=== PATIENT | female | born 1970 | race American Indian/Alaskan Native ===

== ENCOUNTER 2019-08-25 05:53 | Emergency (ER) | payer OTHER ==
[2019-08-25] MEDS ORDERED: PANTOPRAZOLE 40 MG INJ IV ONE (07:24)
[2019-08-25] MEDS ORDERED: ONDANSETRON 4 MG/2 ML INJ IV ONE (07:24)
[2019-08-25] MEDS ORDERED: SODIUM CHLORIDE 0.9% 1000 ML 1,000 ML IV ONE ×2 (07:24→09:52)
--- NOTE | 2019-08-25 08:06 | Emergency Department Report ---
ED General Adult HPI - General Chief complaint: Nausea/Vomiting/Diarrhea Stated complaint: VOMITING,BACK PAIN Time Seen by Provider: 08/25/19 07:15 Source: patient Mode of arrival: Ambulatory Limitations: No Limitations - History of Present Illness Initial comments: Patient is a 49-year-old female presents emergency room with complaints of nausea and vomiting that began 2 days ago. She states that she also has left lower back pain. She states that she feels a burning sensation after vomiting. She denies any diarrhea, urinary symptoms, abdominal pain, fever, chest pain. She states that she had a normal bowel movement this morning. She denies any new foods or spoiled foods, recent antibiotics, camping, water from a different source, recent travel. She denies any past medical history or allergies to medications. - Related Data Previous Rx's Medication Instructions Recorded Last Taken Type Ondansetron [Zofran Odt] 4 mg PO Q8HR PRN #14 tab.rapdis 08/25/19 Unknown Rx metFORMIN [Glucophage] 500 mg PO BID #60 tablet 08/25/19 Unknown Rx Allergies Allergy/AdvReac Type Severity Reaction Status Date / Time No Known Allergies Allergy Unverified 08/25/19 05:57 ED Review of Systems ROS: Stated complaint: VOMITING,BACK PAIN Other details as noted in HPI Comment: All other systems reviewed and negative ED Past Medical Hx - Surgical History Past Surgical History?: Yes Additional Surgical History: c -section - Social History Smoking Status: Never Smoker Substance Use Type: None - Medications Home Medications: Home Medications Medication Instructions Recorded Confirmed Last Taken Type Ondansetron [Zofran Odt] 4 mg PO Q8HR PRN #14 tab.rapdis 08/25/19 Unknown Rx metFORMIN [Glucophage] 500 mg PO BID #60 tablet 08/25/19 Unknown Rx ED Physical Exam - General Limitations: No Limitations General appearance: alert, in no apparent distress - Head Head exam: Present: atraumatic, normocephalic - Eye Eye exam: Present: normal appearance - ENT ENT exam: Present: mucous membranes moist - Respiratory Respiratory exam: Present: normal lung sounds bilaterally. Absent: respiratory distress, wheezes, rales, rhonchi, stridor, chest wall tenderness, accessory muscle use, decreased breath sounds, prolonged expiratory - Cardiovascular Cardiovascular Exam: Present: regular rate, normal rhythm, normal heart sounds. Absent: systolic murmur, diastolic murmur, rubs, gallop - GI/Abdominal GI/Abdominal exam: Present: soft, normal bowel sounds. Absent: distended, tenderness, guarding, rebound, rigid - Back Exam Back exam: Absent: CVA tenderness (R), CVA tenderness (L) - Neurological Exam Neurological exam: Present: alert, oriented X3 - Psychiatric Psychiatric exam: Present: normal affect, normal mood - Skin Skin exam: Present: warm, dry, intact ED Course Vital Signs 08/25/19 08/25/19 05:57 10:37 Temperature 98.3 F Pulse Rate 90 83 Respiratory 18 19 Rate Blood Pressure 164/78 Blood Pressure 135/55 [Right] O2 Sat by Pulse 98 97 Oximetry ED Medical Decision Making - Lab Data Result diagrams: 08/25/19 Unknown 08/25/19 Unknown Lab Results 08/25/19 08/25/19 08/25/19 Range/Units 08:14 08:33 09:15 WBC (4.5-11.0) K/mm3 RBC (3.65-5.03) M/mm3 Hgb (10.1-14.3) gm/dl Hct (30.3-42.9) % MCV (79-97) fl MCH (28-32) pg MCHC (30-34) % RDW (13.2-15.2) % Plt Count (140-440) K/mm3 Lymph % (Auto) (13.4-35.0) % Thomas % (Auto) (0.0-7.3) % Eos % (Auto) (0.0-4.3) % Baso % (Auto) (0.0-1.8) % Lymph # (1.2-5.4) K/mm3 Thomas # (0.0-0.8) K/mm3 Eos # (0.0-0.4) K/mm3 Baso # (0.0-0.1) K/mm3 Seg Neutrophils % (40.0-70.0) % Seg Neutrophils # (1.8-7.7) K/mm3 VBG pH 7.374 (7.320-7.420) Sodium (137-145) mmol/L Potassium (3.6-5.0) mmol/L Chloride (98-107) mmol/L Carbon Dioxide (22-30) mmol/L Anion Gap mmol/L BUN (7-17) mg/dL Creatinine (0.7-1.2) mg/dL Estimated GFR ml/min BUN/Creatinine Ratio % Glucose (65-100) mg/dL Calcium (8.4-10.2) mg/dL Total Bilirubin (0.1-1.2) mg/dL AST (5-40) units/L ALT (7-56) units/L Alkaline Phosphatase (35-129) units/L Total Protein (6.3-8.2) g/dL Albumin (3.9-5) g/dL Albumin/Globulin Ratio % Lipase 28 (13-60) units/L HCG, Qual (Negative) Urine Color Yellow (Yellow) Urine Turbidity Clear (Clear) Urine pH 6.0 (5.0-7.0) Ur Specific [place] 1.037 H (1.003-1.030) Urine Protein 100 mg/dl (Negative) mg/dL Urine Glucose (UA) >=500 (Negative) mg/dL Urine Ketones 80 (Negative) mg/dL Urine Blood Neg (Negative) Urine Nitrite Neg (Negative) Urine Bilirubin Neg (Negative) Urine Urobilinogen < 2.0 (<2.0) mg/dL Ur Leukocyte Esterase Neg (Negative) Urine WBC (Auto) 1.0 (0.0-6.0) /HPF Urine RBC (Auto) 4.0 (0.0-6.0) /HPF U Epithel Cells (Auto) 6.0 (0-13.0) /HPF Urine Mucus Few /HPF 08/25/19 08/25/19 08/25/19 Range/Units 09:15 Unknown Unknown WBC 11.4 H (4.5-11.0) K/mm3 RBC 5.70 H (3.65-5.03) M/mm3 Hgb 14.4 H (10.1-14.3) gm/dl Hct 44.4 H (30.3-42.9) % MCV 78 L (79-97) fl MCH 25 L (28-32) pg MCHC 32 (30-34) % RDW 15.2 (13.2-15.2) % Plt Count 293 (140-440) K/mm3 Lymph % (Auto) 9.5 L (13.4-35.0) % Thomas % (Auto) 5.0 (0.0-7.3) % Eos % (Auto) 0.0 (0.0-4.3) % Baso % (Auto) 1.1 (0.0-1.8) % Lymph # 1.1 L (1.2-5.4) K/mm3 Thomas # 0.6 (0.0-0.8) K/mm3 Eos # 0.0 (0.0-0.4) K/mm3 Baso # 0.1 (0.0-0.1) K/mm3 Seg Neutrophils % 84.4 H (40.0-70.0) % Seg Neutrophils # 9.7 H (1.8-7.7) K/mm3 VBG pH (7.320-7.420) Sodium 133 L TNR (137-145) mmol/L Potassium 4.7 TNR (3.6-5.0) mmol/L Chloride 95.1 L TNR (98-107) mmol/L Carbon Dioxide 24 TNR (22-30) mmol/L Anion Gap 19 TNR mmol/L BUN 16 TNR (7-17) mg/dL Creatinine 0.6 L TNR (0.7-1.2) mg/dL Estimated GFR > 60 TNR ml/min BUN/Creatinine Ratio 27 TNR % Glucose 312 H TNR (65-100) mg/dL Calcium 9.3 TNR (8.4-10.2) mg/dL Total Bilirubin 0.50 TNR (0.1-1.2) mg/dL AST 9 TNR (5-40) units/L ALT 21 TNR (7-56) units/L Alkaline Phosphatase 60 TNR (35-129) units/L Total Protein 8.0 TNR (6.3-8.2) g/dL Albumin 3.9 TNR (3.9-5) g/dL Albumin/Globulin Ratio 1.0 TNR % Lipase TNR (13-60) units/L HCG, Qual (Negative) Urine Color (Yellow) Urine Turbidity (Clear) Urine pH (5.0-7.0) Ur Specific [place] (1.003-1.030) Urine Protein (Negative) mg/dL Urine Glucose (UA) (Negative) mg/dL Urine Ketones (Negative) mg/dL Urine Blood (Negative) Urine Nitrite (Negative) Urine Bilirubin (Negative) Urine Urobilinogen (<2.0) mg/dL Ur Leukocyte Esterase (Negative) Urine WBC (Auto) (0.0-6.0) /HPF Urine RBC (Auto) (0.0-6.0) /HPF U Epithel Cells (Auto) (0-13.0) /HPF Urine Mucus /HPF 08/25/19 Range/Units Unknown WBC (4.5-11.0) K/mm3 RBC (3.65-5.03) M/mm3 Hgb (10.1-14.3) gm/dl Hct (30.3-42.9) % MCV (79-97) fl MCH (28-32) pg MCHC (30-34) % RDW (13.2-15.2) % Plt Count (140-440) K/mm3 Lymph % (Auto) (13.4-35.0) % Thomas % (Auto) (0.0-7.3) % Eos % (Auto) (0.0-4.3) % Baso % (Auto) (0.0-1.8) % Lymph # (1.2-5.4) K/mm3 Thomas # (0.0-0.8) K/mm3 Eos # (0.0-0.4) K/mm3 Baso # (0.0-0.1) K/mm3 Seg Neutrophils % (40.0-70.0) % Seg Neutrophils # (1.8-7.7) K/mm3 VBG pH (7.320-7.420) Sodium (137-145) mmol/L Potassium (3.6-5.0) mmol/L Chloride (98-107) mmol/L Carbon Dioxide (22-30) mmol/L Anion Gap mmol/L BUN (7-17) mg/dL Creatinine (0.7-1.2) mg/dL Estimated GFR ml/min BUN/Creatinine Ratio % Glucose (65-100) mg/dL Calcium (8.4-10.2) mg/dL Total Bilirubin (0.1-1.2) mg/dL AST (5-40) units/L ALT (7-56) units/L Alkaline Phosphatase (35-129) units/L Total Protein (6.3-8.2) g/dL Albumin (3.9-5) g/dL Albumin/Globulin Ratio % Lipase (13-60) units/L HCG, Qual Negative (Negative) Urine Color (Yellow) Urine Turbidity (Clear) Urine pH (5.0-7.0) Ur Specific [place] (1.003-1.030) Urine Protein (Negative) mg/dL Urine Glucose (UA) (Negative) mg/dL Urine Ketones (Negative) mg/dL Urine Blood (Negative) Urine Nitrite (Negative) Urine Bilirubin (Negative) Urine Urobilinogen (<2.0) mg/dL Ur Leukocyte Esterase (Negative) Urine WBC (Auto) (0.0-6.0) /HPF Urine RBC (Auto) (0.0-6.0) /HPF U Epithel Cells (Auto) (0-13.0) /HPF Urine Mucus /HPF Vital Signs 08/25/19 08/25/19 05:57 10:37 Temperature 98.3 F Pulse Rate 90 83 Respiratory 18 19 Rate Blood Pressure 164/78 Blood Pressure 135/55 [Right] O2 Sat by Pulse 98 97 Oximetry - Medical Decision Making Patient is a 49-year-old female presents emergency room with complaints of nausea and vomiting that began 2 days ago. She states that she also has left lower back pain. She states that she feels a burning sensation after vomiting. She denies any diarrhea, urinary symptoms, abdominal pain, fever, chest pain. She states that she had a normal bowel movement this morning. She denies any new foods or spoiled foods, recent antibiotics, camping, water from a different source, recent travel. She denies any past medical history or allergies to medications. Initial vitals with elevated blood pressure which improved upon repeat. On exam: no abdominal tenderness to palpation, no guarding, no rebound, normal bowel sounds, no peritoneal signs, no CVA tenderness. Labs with mild de hydration, blood sugar 312, normal venous pH. UA shows signs of dehydration, no signs of UTI. Patient given 2 L of normal saline, Zofran, Protonix, 5 units of insulin. Patient states that her symptoms have resolved and she feels much better and is ready to go home. She now informs me that she went to see a primary care doctor a while ago and was told that her blood sugar was elevated but she never followed back up and never started on any treatment. on repeat of her blood glucose it has improved to 259. Patient was p.o. challenged while in the ED and had no difficulty tolerating p.o. intake. Patient given prescription for Zofran and metformin. Patient given primary care clinics to follow-up with, discussed the importance of follow-up with patient. Discussed GI upset with metformin. Discussed all results with patient. Advised patient Please take medication as prescribed. Please increase your water intake over the next several days. Please watch your sugar and your carbohydrate intake. Please check your blood sugar in the morning and at night. Please incorporate 30 minutes of daily exercise. Please follow-up with a primary care doctor for reexamination and for close monitoring. Return to the emergency room immediately for any new or worsening symptoms. - Differential Diagnosis Gastroenteritis, gastritis, viral syndrome, pancreatitis, cholecystitis,UTI Critical care attestation.: If time is entered above; I have spent that time in minutes in the direct care of this critically ill patient, excluding procedure time. ED Disposition Clinical Impression: Hyperglycemia, Dehydration Nausea & vomiting Qualifiers: Vomiting type: unspecified Vomiting Intractability: non-intractable Qualified Code(s): R11.2 - Nausea with vomiting, unspecified Disposition: DC-01 TO HOME OR SELFCARE Is pt being admited?: No Does the pt Need Aspirin: No Condition: Stable Instructions: How to Check Your Blood Sugar (ED), Diabetes Mellitus Type 2 in Adults (ED), Acute Nausea and Vomiting (ED) Additional Instructions: Please take medication as prescribed. Please increase your water intake over the next several days. Please watch your sugar and your carbohydrate intake. Please check your blood sugar in the morning and at night. Please incorporate 30 minutes of daily exercise. Please follow-up with a primary care doctor for reexamination and for close monitoring. Return to the emergency room immediately for any new or worsening symptoms. Prescriptions: metFORMIN [Glucophage] 500 mg PO BID #60 tablet Ondansetron [Zofran Odt] 4 mg PO Q8HR PRN #14 tab.rapdis PRN Reason: Nausea And Vomiting Referrals: NGA GIMENEZ MD [Staff Physician] - 3-5 Days [facility] [Provider Group] - 3-5 Days [facility] [Outside] - 3-5 Days [facility] [Outside] - 3-5 Days Forms: Work/School Release Form(ED) Time of Disposition: 11:28 Print Language: FRISIAN
[2019-08-25 08:07] LABS: Basophils # (Auto) 0.1 K/mm3 (0.0-0.1); Basophils % (Auto) 1.1 % (0.0-1.8); Hematocrit 44.4 % (30.3-42.9); Hemoglobin 14.4 gm/dl (10.1-14.3); Lymphocytes # (Auto) 1.1 K/mm3 (1.2-5.4); Lymphocytes % (Auto) 9.5 % (13.4-35.0); Mean Corpuscular HGB Conc 32 % (30-34); Mean Corpuscular Volume 78 fl (79-97); Monocytes # (Auto) 0.6 K/mm3 (0.0-0.8); Platelet Count 293 K/mm3 (140-440); Red Cell Distribution Width 15.2 % (13.2-15.2)
[2019-08-25 08:26] LABS: Bilirubin,Urine NEG (Negative); Blood,Urine NEG (Negative); Color,Urine Yellow (Yellow); Mucus,Urine FEW /HPF; Urobilinogen,Urine < 2.0 mg/dL (<2.0)
[2019-08-25 08:51] LABS: Alanine Aminotransferase TNR units/L (7-56); Albumin TNR g/dL (3.9-5); BUN/Creatinine Ratio TNR; Blood Urea Nitrogen TNR mg/dL (7-17); Calcium TNR mg/dL (8.4-10.2); Hemolysis Index TNR
[2019-08-25 09:47] LABS: Alanine Aminotransferase 21 units/L (7-56); Albumin 3.9 g/dL (3.9-5); BUN/Creatinine Ratio 27; Blood Urea Nitrogen 16 mg/dL (7-17); Calcium 9.3 mg/dL (8.4-10.2); Hemolysis Index 20
[2019-08-25] MEDS ORDERED: INSULIN REGULAR, HUMAN 100 UNITS/1 ML IV ONE (09:52)
[2019-08-25 10:38] VITALS: BP 135/55
== END 2019-08-25 11:44 | disposition home or self-care (01) ==
LOC: ED 05:53
DX: R73.9 Hyperglycemia, unspecified (principal); E86.0 Dehydration; R11.2 Nausea with vomiting, unspecified; Z79.899 Other long term (current) drug therapy
CPT/HCPCS: 36415; 80053; 81001; 82805; 82962; 83690; 84703; 85025; 96361; 96374; 96375; 99284; C9113; J2405; J7030; J1815

== ENCOUNTER 2019-12-20 15:15 | Emergency (ER) | payer OTHER ==
--- NOTE | 2019-12-20 16:26 | Emergency Department Report ---
Blank Doc - Documentation Documentation: 49-year-old female that presents with dizziness and nausea. This initial assessment/diagnostic orders/clinical plan/treatment(s) is/are subject to change based on patient's health status, clinical progression and re- assessment by fellow clinical providers in the ED. Further treatment and workup at subsequent clinical providers discretion. Patient/guardians urged not to elope from the ED as their condition may be serious if not clinically assessed and managed. Initial orders include: 1- Patient sent to [facility] for further evaluation and treatment 2- labs 3- UA
[2019-12-20 16:27] VITALS: BP 107/76
[2019-12-20 17:14] LABS: Basophils # (Auto) 0.1 K/mm3 (0.0-0.1); Basophils % (Auto) 0.7 % (0.0-1.8); Eosinophils % (Auto) 0.3 % (0.0-4.3); Hematocrit 41.2 % (30.3-42.9); Hemoglobin 13.5 gm/dl (10.1-14.3); Lymphocytes % (Auto) 21.2 % (13.4-35.0); Mean Corpuscular HGB Conc 33 % (30-34); Mean Corpuscular Volume 78 fl (79-97); Monocytes # (Auto) 0.6 K/mm3 (0.0-0.8); Monocytes % (Auto) 6.4 % (0.0-7.3); Platelet Count 355 K/mm3 (140-440); Red Blood Count 5.29 M/mm3 (3.65-5.03); Red Cell Distribution Width 14.6 % (13.2-15.2)
[2019-12-20 17:38] LABS: Alanine Aminotransferase 24 units/L (7-56); Albumin 4.2 g/dL (3.9-5); Blood Urea Nitrogen 15 mg/dL (7-17); Calcium 9.7 mg/dL (8.4-10.2); Hemolysis Index 11
[2019-12-20 17:42] LABS: BUN/Creatinine Ratio 21
[2019-12-20] MEDS ORDERED: ONDANSETRON 4 MG/2 ML INJ IV ONE (20:58)
[2019-12-20] MEDS ORDERED: SODIUM CHLORIDE 0.9% 1000 ML 1,000 ML IV ONE (20:58)
--- NOTE | 2019-12-20 21:52 | Emergency Department Report ---
ED General Adult HPI - General Chief complaint: Nausea/Vomiting/Diarrhea Stated complaint: N/VERTIGO Time Seen by Provider: 12/20/19 16:25 Source: patient Mode of arrival: Wheelchair Limitations: No Limitations - History of Present Illness Initial comments: Patient is a 49-year-old -[place] female with a history of diabetes who presents for dizziness and nausea x2 days. Patient rates symptoms at 4/10 symptoms are exacerbated by activity. Symptoms are relieved by nothing tried. Patient currently taking metformin 50 mg p.o. twice daily to control blood sugar, pt denies vomiting, there is no fever or chills. pt denies dysuria frequency or urgency. pt states hx of similar symptoms 4 months ago, dx with vertigo - Related Data Previous Rx's Medication Instructions Recorded Last Taken Type Ondansetron [Zofran Odt] 4 mg PO Q8HR PRN #14 tab.rapdis 08/25/19 Unknown Rx metFORMIN [Glucophage] 500 mg PO BID #60 tablet 08/25/19 Unknown Rx Ondansetron [Zofran Odt] 4 mg PO Q8HR PRN #12 tab.rapdis 12/20/19 Unknown Rx metFORMIN [Glucophage] 500 mg PO BID #60 tablet 12/20/19 Unknown Rx Allergies Allergy/AdvReac Type Severity Reaction Status Date / Time No Known Allergies Allergy Unverified 12/20/19 16:29 ED Review of Systems ROS: Stated complaint: N/VERTIGO Other details as noted in HPI Constitutional: denies: chills, fever Eyes: denies: eye pain, eye discharge, vision change ENT: denies: ear pain, throat pain, congestion Respiratory: denies: cough, shortness of breath, wheezing Cardiovascular: denies: chest pain, palpitations Endocrine: no symptoms reported Gastrointestinal: nausea, vomiting. denies: abdominal pain, diarrhea Genitourinary: denies: urgency, dysuria, frequency, hematuria, discharge Musculoskeletal: denies: back pain, joint swelling, arthralgia Skin: denies: rash, lesions Neurological: denies: headache, weakness, paresthesias Psychiatric: denies: anxiety, depression Hematological/Lymphatic: denies: easy bleeding, easy bruising ED Past Medical Hx - Past Medical History Previous Medical History?: Yes Hx Diabetes: Yes - Surgical History Past Surgical History?: Yes Additional Surgical History: c -section - Social History Smoking Status: Never Smoker Substance Use Type: None - Medications Home Medications: Home Medications Medication Instructions Recorded Confirmed Last Taken Type Ondansetron [Zofran Odt] 4 mg PO Q8HR PRN #14 tab.rapdis 08/25/19 Unknown Rx metFORMIN [Glucophage] 500 mg PO BID #60 tablet 08/25/19 Unknown Rx Ondansetron [Zofran Odt] 4 mg PO Q8HR PRN #12 tab.rapdis 12/20/19 Unknown Rx metFORMIN [Glucophage] 500 mg PO BID #60 tablet 12/20/19 Unknown Rx ED Physical Exam - General Limitations: No Limitations General appearance: alert, in no apparent distress - Head Head exam: Present: atraumatic, normocephalic - Eye Eye exam: Present: normal appearance, EOMI Pupils: Present: normal accommodation - ENT ENT exam: Present: normal orophraynx, mucous membranes moist, TM's normal bilaterally, normal external ear exam - Neck Neck exam: Present: normal inspection, full ROM. Absent: tenderness, lymphadenopathy - Respiratory Respiratory exam: Present: normal lung sounds bilaterally. Absent: respiratory distress, wheezes, stridor - Cardiovascular Cardiovascular Exam: Present: regular rate, normal rhythm, normal heart sounds. Absent: systolic murmur, diastolic murmur, rubs, gallop - GI/Abdominal GI/Abdominal exam: Present: soft, normal bowel sounds. Absent: distended, tenderness, guarding, rebound, rigid, bruit, hernia - Rectal Rectal exam: Present: deferred - Extremities Exam Extremities exam: Present: normal inspection, full ROM. Absent: tenderness - Back Exam Back exam: Present: normal inspection, full ROM. Absent: tenderness, CVA tenderness (R), CVA tenderness (L), vertebral tenderness - Neurological Exam Neurological exam: Present: alert, oriented X3, CN II-XII intact, normal gait - Psychiatric Psychiatric exam: Present: normal affect, normal mood - Skin Skin exam: Present: warm, dry, intact, normal color. Absent: rash ED Course Vital Signs 12/20/19 16:25 Temperature 98.5 F Pulse Rate 95 H Respiratory 18 Rate Blood Pressure 107/76 [Left] O2 Sat by Pulse 100 Oximetry ED Medical Decision Making - Lab Data Result diagrams: 12/20/19 16:51 12/20/19 16:51 Labs 12/20/19 12/20/19 16:51 16:51 WBC 9.6 RBC 5.29 H Hgb 13.5 Hct 41.2 MCV 78 L MCH 26 L MCHC 33 RDW 14.6 Plt Count 355 Lymph % (Auto) 21.2 [place] % (Auto) 6.4 Eos % (Auto) 0.3 Baso % (Auto) 0.7 Lymph # 2.0 [place] # 0.6 Eos # 0.0 Baso # 0.1 Seg Neutrophils % 71.4 H Seg Neutrophils # 6.9 Sodium 136 L Potassium 4.9 Chloride 97.6 L Carbon Dioxide 24 Anion Gap 19 BUN 15 Creatinine 0.7 Estimated GFR > 60 BUN/Creatinine Ratio 21 Glucose 250 H Calcium 9.7 Total Bilirubin 0.40 AST 12 ALT 24 Alkaline Phosphatase 54 Total Protein 8.1 Albumin 4.2 Albumin/Globulin Ratio 1.1 - Medical Decision Making labs noted below accucheck 250 mg/dl, pt is tolerating po intake , there is no fever or chills, no dysuria ,frequency or urgency, no vaginal discharge, pt is tolerating po intake at this time, plan: take metformin as prescribed, follow up with your primary care doctor in 2-3 days. pt verbalized agreement and understanding of discharge plan. Critical care attestation.: If time is entered above; I have spent that time in minutes in the direct care of this critically ill patient, excluding procedure time. ED Disposition Clinical Impression: Hyperglycemia Disposition: DC-01 TO HOME OR SELFCARE Is pt being admited?: No Does the pt Need Aspirin: No Condition: Stable Instructions: Metformin (By mouth), Diabetic Hyperglycemia (ED) Prescriptions: metFORMIN [Glucophage] 500 mg PO BID #60 tablet Ondansetron [Zofran Odt] 4 mg PO Q8HR PRN #12 tab.rapdis PRN Reason: Nausea Referrals: CHELSEA MCMANUS MD [Staff Physician] - 3-5 Days Forms: Work/School Release Form(ED)
== END 2019-12-20 23:50 | disposition home or self-care (01) ==
LOC: ED 15:15
DX: E11.65 Type 2 diabetes mellitus with hyperglycemia (principal); Z79.899 Other long term (current) drug therapy
CPT/HCPCS: 36415; 80053; 85025; 96361; 96374; 99283; J2405; J7030